=== PATIENT | female | born 2000 | race Two or more races ===

== ENCOUNTER 2023-03-08 02:21 | Emergency (ER) | payer MEDICAID, OTHER ==
[~2023-03-08] VITALS: Ht 157.5 cm; Wt 65.0 kg
[2023-03-08 02:21] VITALS: BP 101/69; PULSE 78; RESP 18; TEMP 97.9
[2023-03-08] MEDS ORDERED: IBUPROFEN 800 MG TAB PO ONE (02:30)
[2023-03-08] MEDS ORDERED: IBUP1TAB5 PO (03:10)
[2023-03-08] MEDS ORDERED: HYDROcodone-ACET 5/325MG TAB PO ONE (03:15)
[2023-03-08 03:45] VITALS: O2SAT 98
== END 2023-03-08 04:00 | disposition home or self-care (01) ==
LOC: ER 02:24
DX: S93.402A Sprain of unspecified ligament of left ankle, initial encounter (principal); W01.0XXA Fall on same level from slipping, tripping and stumbling without subsequent striking against object, initial encounter; Y93.89 Activity, other specified; Y92.89 Other specified places as the place of occurrence of the external cause; Y99.8 Other external cause status
CPT/HCPCS: 29515; 73610

== ENCOUNTER 2023-12-07 20:48 | Emergency (ER) | payer MEDICAID ==
[~2023-12-07] VITALS: Ht 157.5 cm; Wt 63.0 kg
[~2023-12-07 20:48] MED LIST: IBUP1TAB5 PO
[2023-12-07 22:57] LABS: Basophils # (auto) 0 10 ^3/uL (0-0.2); Basophils % (auto) 0.5 % (0.0-2.0); Eosinophils # (auto) 0 10 ^3/uL (0-0.8); Eosinophils % (auto) 0.7 % (0.0-7.0); Hematocrit 39.8 % (36.0-46.0); Hemoglobin 13.4 g/dL (12.2-16.2); Lymphocytes % (auto) 30.8 % (10.0-50.0); Mean Corpuscular Hemoglobin 28.6 pg (28.0-32.0); Mean Corpuscular Hgb Conc. 33.6 g/dL (32.0-36.0); Monocytes # (auto) 0.6 10 ^3/uL (0-1.3); Monocytes % (auto) 8.4 % (0.0-12.0); Neutrophils # (auto) 3.9 10 ^3/uL (1.6-8.6); Neutrophils % (auto) 59.6 % (37.0-80.0); Red Blood Cells 4.68 10^6/uL (4.0-5.20); Red Cell Distribution Width 15.8 % (11.8-14.3); White Blood Cell 6.6 10^3/uL (4.4-10.8)
[2023-12-07 23:02] LABS: Alanine Aminotransferase 24 U/L (7-40); Albumin 4.5 g/dL (3.2-4.8); Alkaline Phosphatase 90 U/L (46-116); Anion Gap 5 (5-15); Aspartate Aminotransferase 15 U/L (13-40); BUN/Creatinine Ratio 11.5 (10.0-20.0); Bilirubin, Total 0.3 mg/dL (0.2-1.0); Blood Urea Nitrogen 7 mg/dL (9-23); Calcium 9.3 mg/dL (8.5-10.1); Carbon Dioxide 23 mmol/L (20-30); Chloride 109 mmol/L (98-107); Glucose 90 mg/dL (74-106); Potassium 3.8 mmol/L (3.5-5.1); Sodium 137 mmol/L (136-145)
[2023-12-07 23:03] LABS: Total Protein 7.8 g/dL (5.7-8.2)
[2023-12-07 23:21] LABS: Urine Bacteria None Seen /hpf (None Seen)
[2023-12-07 23:37] LABS: Urine Blood 1+ /uL (Negative); Urine Clarity Clear (Clear); Urine Color Light-Yellow (Yellow); Urine Protein, UAD Negative (Negative); Urine Specific Gravity 1.019 (1.001-1.035); Urine Urobilinogen Normal (Negative); Urine WBC <1 /hpf (0 - 5)
[2023-12-08 01:00] VITALS: BP 132/72; PULSE 63; RESP 16; TEMP 97.9; O2SAT 100
== END 2023-12-08 01:08 | disposition home or self-care (01) ==
LOC: ER 20:48
DX: O20.9 Hemorrhage in early pregnancy, unspecified (principal); R10.2 Pelvic and perineal pain; Z3A.01 Less than 8 weeks gestation of pregnancy
CPT/HCPCS: 36415; 76801; 76817; 80053; 81001; 84702; 85025

== ENCOUNTER 2024-03-22 18:33 | Emergency (ER) | payer MEDICAID ==
[~2024-03-22] VITALS: Ht 157.5 cm; Wt 76.3 kg
[2024-03-22] MEDS ORDERED: AMOX875T4 PO (22:57)
[2024-03-22] MEDS ORDERED: PRED20TA2 PO (22:57)
[2024-03-22] MEDS ORDERED: ACET500T58 PO (22:57)
[2024-03-22] MEDS: cefTRIAXone SOD 1,000 MG VL IM ONE (23:36)
[2024-03-22] MEDS: methylPREDNISolone SOD SUCC 125 MG/2 ML VL IM ONE (23:38)
[2024-03-23 00:18] VITALS: BP 117/75; PULSE 64; RESP 16; TEMP 97.9; O2SAT 100
== END 2024-03-23 00:24 | disposition home or self-care (01) ==
LOC: ER 18:33
DX: J03.90 Acute tonsillitis, unspecified (principal); H92.02 Otalgia, left ear
CPT/HCPCS: 96372; 99284; J0696; J2919